=== PATIENT | male | born 1985 | race Asian ===

== ENCOUNTER 2021-09-24 21:09 | Emergency (ER) | payer OTHER ==
[~2021-09-24] VITALS: Ht 190.5 cm; Wt 96.6 kg
[2021-09-24 22:21] LABS: POTASSIUM 3.7 mmol/L (3.6-5.2)
[2021-09-24 22:28] LABS: PLATELET COUNT 277 K/uL (142-355)
[2021-09-24 23:35] VITALS: BP 120/79
== END 2021-09-24 23:35 | disposition home or self-care (01) ==
LOC: ED 21:09
PROVIDERS: Hospitalist
DX: R10.13 Epigastric pain (principal); R11.2 Nausea with vomiting, unspecified; R19.7 Diarrhea, unspecified
CPT/HCPCS: 36415; 80053; 80320; 83690; 85027; 96360; 96374; 99284; J2405; Q9963